=== PATIENT | male | born 1935 | race Caucasian/White ===

== ENCOUNTER → 2017-06-17 | Outpatient (CLI) | payer OTHER ==
[~2017-06-17] MED LIST: ACETAMINOPHEN325 M1 PO; ADULT LOW DOSE81 MG PO; ALLOPURINOL 30300 M1 PO; ASPIRIN EC81 M1 PO; ATORVASTATIN CA40 MG PO; B-100 COMPLEX1 EAC1 PO; CARAC30 GM TP; CENTRUM TABLET1 EACH PO; COLACE 100 MG100 MG; COLACE100 MG; COZAAR 50 MG TA50 M2 PO; CRESTOR5 MG PO; FISH OIL 1,0001 EAC5 PO; FISHOIL PO; FLOMAX PO; FLOMAX0.4 MG PO; IRON PO; IRON55 MG PO; MELOXICAM7.5 MG PO; MOBIC15 MG PO; MULTIVITAMINS PO; NORCO 5-325 TA1 EACH PO; NORCO 7.5-3251 EACH; PERCOCET 7.5-31 EACH; PHENERGAN 25 MG25 M1 PO; PRAVASTATIN SOD40 MG PO; SIMVASTATIN; SIMVASTATIN40 MG PO; TAMSULOSIN HCL0.4 M1 PO; TRAMADOL 50 MG50 MG PO; VICODIN ES TAB1 EACH PO; VITAMIN B-12100 MCG PO; VITAMIN C + RO500 MG PO; VITCB500GO PO; ZOFRAN 4 MG ORAL4 M1 DIS; ZPAK; ZPAK PO
--- NOTE | 2017-06-17 14:56 | CARDNUC ---
[place] [address] CARDIAC NUCLEAR IMAGING REPORT Name: JUSTINO CHRISTOPHER Room: [facility]#: [id number] Admission: 06/17/17 Attend Phys: Keyana Morales, Discharge: Date of : 39 Date of Service: 06/17/17 1456 Report #: [id number] THIS REPORT FOR: //name// APPROVED REPORT Exam: Nuclear Stress Test Indication: cad, pre surgical Patient Location: Out-Patient Stress Tech: [facility] Stress Nurse: Ana Ko RN Ht: 5 ft 9 in Wt: 202 lbs BSA: 2.07 m2 BMI: 29.82 Medical History Medical History: mi, cabg x8, cad, hyperlipidemia, htn Medications: aspirin, losartan, zetia, metoprolol Allergies: nkda Cardiac Risk Factors: age, hyperdipidemia, htn Previous Cardiac Procedures: cabg x8 Exercise History: Indeterminate Stress Test Details Stress Test: Pharmacologic stress testing performed using 0.4 mg of regadenoson per 5 mL given IV over 10 seconds. HR Resting HR: 89 bpm Max Heart Rate (APMHR): 140 bpm Max HR Achieved: 91 bpm Target HR (85% APMHR): 119 bpm % of APMHR: 65 Recovery HR: 103 bpm BP Resting BP: 121/89 mmHg Max BP: 86/59 mmHg ECG Resting ECG: Sinus Rhythm, normal EKG Stress ECG: Sinus Rhythm, normal EKG ST Change: None Arrhythmia: None Recovery ECG: Sinus Rhythm, normal EKG Recovery ST Change: None Recovery Arrhythmia: [place] [address] CARDIAC NUCLEAR IMAGING REPORT Name: JUSTINO CHRISTOPHER Room: [facility]#: [id number] Admission: 06/17/17 Attend Phys: Keyana Morales, Discharge: Date of : 39 Date of Service: 06/17/17 1456 Report #: [id number] Clinical Reason for Termination: Completed protocol Stress Symptoms: None Exercise duration: 0 min sec Exercise capacity: 1 METs Functional Aerobic Impairment 75% The patient had no significant symptoms with Lexiscan infusion. Stress ECG Conclusion The baseline 12-lead electrocardiogram showed normal sinus rhythm with no significant ST or T wave abnormalities. EKGs obtained during and post Lexiscan infusion showed sinus rhythm with no significant ST or T wave changes when compared to baseline. There were no stress-induced arrhythmias. NM EXAM: Myocardial Perfusion REST/STRESS Imaging Protocol: Rest Tc-99m/Stress Tc-99m 1 day Resting Data Rest SPECT myocardial perfusion imaging was performed in supine position 30 minutes following the intravenous injection of 12.0 mCi of Tc-99m Sestamibi. Time of rest injection: 834 Time of rest imagin The images were gated to evaluate regional wall motion and calculate left ventricular ejection fraction. Administration Route: IV Administration Site: Right Hand Pharmacologic Stress Pharmacologic stress test was performed by injecting Regadenoson 0.4 mg IV push followed by the intravenous injection of 35.5 mCi of Tc-99m Sestamibi. Time of stress injection: 1010 Time of stress imagin Administration Route: IV Administration Site: Right Hand Heart Rate at time of stress injection: 91 bpm. Gated Stress SPECT was performed 40 minutes after stress injection. The images were gated to evaluate regional wall motion and calculate left ventricular ejection fraction. Prone imaging was [place] [address] CARDIAC NUCLEAR IMAGING REPORT Name: JUSTINO CHRISTOPHER Room: [facility]#: [id number] Admission: 06/17/17 Attend Phys: Keyana Morales, Discharge: Date of : 39 Date of Service: 06/17/17 1456 Report #: [id number] Study: Good Artifact: No artifact Study Data At rest, the left ventricular ejection fraction was 58%.. Post stress, the left ventricular ejection was 62%.. TID = 1.00. Perfusion Normal left ventricular perfusion. 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 Left ventricular motion was otherwise normal. Left ventricular systolic function appeared normal. Nuclear Conclusion ECG Findings: negative for ischemia Clinical Findings: negative for ischemia Nuclear Findings: negative for ischemia Exercise Capacity: not assessed Left Ventricular Function: normal Risk Study: low Myocardial perfusion images obtained show no defect to suggest infarct or ischemia. Overall left ventricular systolic function is well-preserved with normal left ventricular systolic function. This is a low risk study. <Conclusion> The baseline 12-lead electrocardiogram showed normal sinus rhythm with no significant ST or T wave abnormalities. EKGs obtained during and post Lexiscan infusion showed sinus rhythm with no significant ST or T wave changes when compared to baseline. There were no stress-induced arrhythmias. <ELECTRONICALLY SIGNED> By: Carlos Singletary MD, FACC 06/17/17 1456 1456 1456 Carlos Singletary MD, FACC /INF
== END ==
LOC: M.NUC 06-08 13:41
DX: I25.10 Atherosclerotic heart disease of native coronary artery without angina pectoris (principal); I25.2 Old myocardial infarction; E78.5 Hyperlipidemia, unspecified; I10 Essential (primary) hypertension; Z95.1 Presence of aortocoronary bypass graft